=== PATIENT | female | born 1985 | race American Indian/Alaskan Native ===

== ENCOUNTER 2017-02-21 17:27 | Emergency (ER) | payer MEDICAID ==
[2017-02-21 20:15] LABS: Basophils % (Auto) 0.4 % (0.0-1.8); Eosinophils % (Auto) 2.4 % (0.0-4.3); Hemoglobin 11.1 gm/dl (10.1-14.3); Mean Corpuscular HGB Conc 34 % (30-34); Mean Corpuscular Hemoglobin 26 pg (28-32); Mean Corpuscular Volume 78 fl (79-97); Platelet Count 323 K/mm3 (140-440); Red Blood Count 4.22 M/mm3 (3.65-5.03); White Blood Count 7.7 K/mm3 (4.5-11.0)
[2017-02-21 21:06] LABS: Bacteria,Urine 2+ /HPF (Negative); Bilirubin,Urine NEG (Negative); Blood,Urine LG (Negative); Ketones,Urine NEG (Negative); Leukocyte Esterase,Urine LG (Negative); Mucus,Urine FEW /HPF; Nitrite,Urine NEG (Negative); Urobilinogen,Urine < 2.0 mg/dL (<2.0)
[2017-02-21 21:07] LABS: WBC,Urine > 182.0 /HPF (0.0-6.0)
[2017-02-22] MEDS ORDERED: NORCO 5/325 PO ONE (01:20)
--- NOTE | 2017-02-22 01:23 | Emergency Department Report ---
HPI - General Chief Complaint: Vaginal Bleeding Time Seen by Provider: 02/22/17 01:01 - HPI HPI: This is a 31-year-old Afro-[place]ian female presents to the emergency department with complaint of pelvic pain and heavy vaginal bleeding status post miscarriage. She was at [place] on Sunday and was found to have a miscarriage and was placed on Cytotec. Since that time she has been having increased bleeding, clots and now thinks that she is passing some tissue. She denies any fever, nausea, vomiting. She has been taking ibuprofen for discomfort. She does not have a CLOTHING CONSULTANT. She has a past medical history of asthma and has sickle cell trait and -induced hypertension. ED Past Medical Hx - Past Medical History Previous Medical History?: Yes Hx Hypertension: No (PIH) Hx Congestive Heart Failure: No Hx Diabetes: No Hx Deep Vein Thrombosis: No Hx Renal Disease: No Hx Sickle Cell Disease: No (Trait) Hx Seizures: No Hx Asthma: Yes (last attack 3 years ago) Hx COPD: No Hx HIV: No - Surgical History Past Surgical History?: No - Social History Smoking Status: Current Every Day Smoker Substance Use Type: None - Medications Home Medications: Home Medications Medication Instructions Recorded Confirmed Last Taken Type Ibuprofen [Motrin] 800 mg PO Q8H PRN #30 tablet 06/26/14 02/06/15 02/06/15 Rx Acetaminophen/Codeine [Tylenol #3] 1 tab PO Q6H PRN #20 tab 09/29/14 02/06/15 Unknown Rx Clindamycin [Clindamycin CAP] 300 mg PO Q6H #40 capsule 09/29/14 02/06/15 Rx Amoxicillin [Trimox CAP] 500 mg PO Q8H #30 capsule 02/06/15 Unknown Rx traMADol [Ultram 50 MG tab] 50 mg PO Q6HR PRN #14 tablet 02/06/15 Unknown Rx Cephalexin [Keflex] 500 mg PO Q6HR #28 capsule 11/19/15 Unknown Rx Penicillin Vk [Veetids TAB] 500 mg PO QID #28 tablet 11/23/15 Unknown Rx HYDROcodone/ACETAMINOPHEN [[place] 1 each PO Q6H PRN #10 tablet 02/22/17 Unknown Rx 5-325 Tablet] Misoprostol [Cytotec] 400 mcg PO ONCE #1 tablet 02/22/17 Unknown Rx ED Review of Systems ROS: Stated complaint: VAGINAL BLEEDING Other details as noted in HPI Comment: All other systems reviewed and negative Constitutional: denies: chills, fever Eyes: denies: eye pain, eye discharge, vision change ENT: denies: ear pain, throat pain Respiratory: denies: cough, shortness of breath, wheezing Cardiovascular: denies: chest pain, palpitations Gastrointestinal: abdominal pain (pelvic pain). denies: nausea, diarrhea Genitourinary: other (vaginal bleeding). denies: dysuria Musculoskeletal: denies: back pain, joint swelling, arthralgia Skin: denies: rash, lesions Neurological: denies: headache, weakness, paresthesias Physical Exam - Physical Exam Vital Signs: Vital Signs 02/21/17 02/21/17 02/21/17 19:18 19:19 19:24 Temperature 98.5 F Pulse Rate 81 86 86 Respiratory 18 Rate Blood Pressure 114/86 114/86 114/86 Blood Pressure [Right] O2 Sat by Pulse 99 100 100 Oximetry 02/21/17 02/21/17 02/22/17 22:19 22:21 00:00 Temperature 98 F 98.8 F Pulse Rate 75 74 88 Respiratory 20 18 Rate Blood Pressure 119/78 119/78 109/73 Blood Pressure 107/72 [Right] O2 Sat by Pulse 100 99 Oximetry 02/22/17 00:30 Temperature Pulse Rate Respiratory Rate Blood Pressure 104/69 Blood Pressure [Right] O2 Sat by Pulse 100 Oximetry Physical Exam: GENERAL: The patient is well-developed well-nourished. HENT: Normocephalic. Atraumatic. Patient has moist mucous membranes. EYES: Extraocular motions are intact. Pupils equal reactive to light bilaterally. NECK: Supple. Trachea is midline. CHEST/LUNGS: Clear to auscultation. There is no respiratory distress noted. HEART/CARDIOVASCULAR: Regular. There is no tachycardia. There is no gallop rub or murmur. ABDOMEN: Abdomen is soft. Unable to reproduce lower abdominal and/or pelvic discomfort palpation. No guarding or rebound tenderness. Patient has normal bowel sounds. There is no abdominal distention. SKIN: Skin is warm and dry. NEURO: The patient is awake, alert, and oriented. The patient is cooperative. The patient has no focal neurologic deficits. The patient has normal speech. MUSCULOSKELETAL: There is no tenderness or deformity. There is no limitation range of motion. There is no evidence of acute injury. ED Course Vital Signs 02/21/17 02/21/17 02/21/17 19:18 19:19 19:24 Temperature 98.5 F Pulse Rate 81 86 86 Respiratory 18 Rate Blood Pressure 114/86 114/86 114/86 Blood Pressure [Right] O2 Sat by Pulse 99 100 100 Oximetry 02/21/17 02/21/17 02/22/17 22:19 22:21 00:00 Temperature 98 F 98.8 F Pulse Rate 75 74 88 Respiratory 20 18 Rate Blood Pressure 119/78 119/78 109/73 Blood Pressure 107/72 [Right] O2 Sat by Pulse 100 99 Oximetry 02/22/17 00:30 Temperature Pulse Rate Respiratory Rate Blood Pressure 104/69 Blood Pressure [Right] O2 Sat by Pulse 100 Oximetry - Consultations Consultation #1: I spoke to the CLOTHING CONSULTANT radiographer cardiac catheterization, Dr. Funez, who recommended another dose of Cytotec and for the patient to follow-up in their office the next day or so. 02/22/17 04:08 ED Medical Decision Making - Lab Data Result diagrams: 02/21/17 19:53 - Radiology Data Radiology results: report reviewed EXAM: US OB TRANSVAGINAL HISTORY: pelvic pain, bleeding, products of retained conc? TECHNIQUE: Transvaginal imaging was obtained of the pelvis. FINDINGS: The uterus is anteverted measuring 8.7 cm x 4.9 cm x 5.8 cm. The endometrial thickness is 18.2 millimeters. There is complex echogenic material in the endometrial cavity toward the fundus measuring 2.1 cm x 2 cm x 2.9 cm. The findings are compatible with retained products of conception. The maternal right ovary is normal size contour and echotexture measuring 2 cm x 1.6 cm x 1.9 cm. The left ovary measures 3.4 cm x 2.1 cm x 1.8 cm. There is an 8 millimeter cyst in the left ovary. Free fluid is not seen. IMPRESSION: Thickened echogenic endometrium as described compatible with retained products of conception. Transcribed By: RB Dictated By: DINESH HAMMONDS MD Electronically Authenticated By: DINESH HAMMONDS MD Signed Date/Time: 02/21/17 0493 - Medical Decision Making 31-year-old female presents with some continued vaginal bleeding with clots and some lower abdominal and/or pelvic discomfort after having a miscarriage, going to [place], being started on Cytotec. Her labs today are mostly unremarkable. She was given a [place] for discomfort. Ultrasound shows possible retained products of conception. Spoke with CLOTHING CONSULTANT who recommends another dose of Cytotec and follow-up with their service. Vital signs stable throughout her ED course. Patient was reevaluated multiple times of multiple hours and is feeling improved. She will follow up with [facility] and return to the emergency Department with any worsening of her symptoms or any acute distress. - Differential Diagnosis retained products of conception, miscarriage, fibroids Critical Care Time: No Critical care attestation.: If time is entered above; I have spent that time in minutes in the direct care of this critically ill patient, excluding procedure time. ED Disposition Clinical Impression: Retained products of conception, Pelvic pain, Vaginal bleeding Disposition: TO HOME OR SELFCARE Is pt being admited?: No Condition: Stable Instructions: Spontaneous Miscarriage (ED) Additional Instructions: You were seen today regarding your recent miscarriage and found to have some products of retained conception. I am prescribing you another dose of Cytotec to take. This medication may increase the vaginal bleeding and may cause some uterine cramping. Please call today and make an appointment with the CLOTHING CONSULTANT group provided. Return to the emergency Department with any worsening of your symptoms are any acute distress. You have been prescribed a medication that is sedating and therefore should not be taken prior to driving, working, and responsible for children and in no way should be mixed with alcohol of any quantity. Prescriptions: HYDROcodone/ACETAMINOPHEN [[place] 5-325 Tablet] 1 each PO Q6H PRN #10 tablet PRN Reason: Pain Misoprostol [Cytotec] 400 mcg PO ONCE #1 tablet Referrals: [facility] [Provider Group] - [place] Forms: Work/School Release Form(ED) Time of Disposition: 03:45
--- NOTE | 2017-02-22 02:31 | Ultrasound Report ---
FINAL REPORT EXAM: US OB TRANSVAGINAL HISTORY: pelvic pain, bleeding, products of retained conc? TECHNIQUE: Transvaginal imaging was obtained of the pelvis. FINDINGS: The uterus is anteverted measuring 8.7 cm x 4.9 cm x 5.8 cm. The endometrial thickness is 18.2 millimeters. There is complex echogenic material in the endometrial cavity toward the fundus measuring 2.1 cm x 2 cm x 2.9 cm. The findings are compatible with retained products of conception. The maternal right ovary is normal size contour and echotexture measuring 2 cm x 1.6 cm x 1.9 cm. The left ovary measures 3.4 cm x 2.1 cm x 1.8 cm. There is an 8 millimeter cyst in the left ovary. Free fluid is not seen. IMPRESSION: Thickened echogenic endometrium as described compatible with retained products of conception.
--- NOTE | 2017-02-22 02:33 | Ultrasound Report ---
FINAL REPORT EXAM: US OB \T\lt; = 14 WEEKS FETUS HISTORY: pelvic pain, bleeding, products of retained conc? TECHNIQUE: Transabdominal imaging was obtained the pelvis. FINDINGS: The uterus is anteverted measuring 8.7 cm x 4.9 cm x 5.8 cm. The endometrium is thickened measuring 18.2 millimeters. There is complex echogenic material toward the uterine fundus measuring 2.1 cm x 2 cm x 2.9 cm. The findings are compatible with retained products of conception. The maternal right ovary is normal size contour and echotexture measuring 2 cm x 1.6 cm x 1.9 cm. The left ovary measures 3.4 cm x 2.1 cm x 1.8 cm. Within the left ovary is an 8 millimeter functional cyst. Free fluid is not seen. IMPRESSION: Echogenic and thickened endometrium compatible with retained products of conception.
[2017-02-22 04:00] VITALS: BP 90/51
== END 2017-02-22 04:02 | disposition home or self-care (01) ==
LOC: ED 17:27
DX: N93.9 Abnormal uterine and vaginal bleeding, unspecified (principal); R10.2 Pelvic and perineal pain; J45.909 Unspecified asthma, uncomplicated; F17.200 Nicotine dependence, unspecified, uncomplicated
CPT/HCPCS: 36415; 76801; 76817; 81001; 84702; 85025; 86850; 86900; 86901